=== PATIENT | male | born 1965 | race Caucasian/White ===

== ENCOUNTER 2019-08-21 08:02 | Emergency (ER) | payer MEDICAID ==
[~2019-08-21] VITALS: Ht 165.1 cm; Wt 54.4 kg
[2019-08-21 08:17] VITALS: Ht 165.1 cm; Wt 54.4 kg
[2019-08-21 09:07] VITALS: BP 121/92
== END 2019-08-21 09:07 | disposition home or self-care (01) ==
LOC: ED 08:02
DX: K02.9 Dental caries, unspecified (principal); L03.211 Cellulitis of face